=== PATIENT | male | born 1955 | race Caucasian/White ===

== ENCOUNTER → 2021-11-20 | Outpatient (CLI) | payer BC ==
[~2021-11-20] MED LIST: REGADENOSON 0.4 MG/5 ML SYRINGE IV PRN
--- NOTE | 2021-11-20 12:00 | NM ---
"EXAMINATION TYPE: NM stress lexiscan cardiolite DATE OF EXAM: 11/20/2021 COMPARISON: NONE HISTORY: Family history of heart attack with hypercholesterolemia and hypertension. History of tobacc o use. Chest pain. TECHNIQUE: After the intravenous administration of 9.4 mCi Tc 99m Sestamibi - Cardiolite resting SPE CT images acquired 45 minutes post injection. The patient received 0.4mg Lexiscan, 25.5 mCi Tc 99m Sestamibi - Stress images obtained [address] injection FINDINGS: Review of stress and rest SPECT images demonstrates diminished radiotracer uptake involving lateral l eft ventricular wall on stress and rest images with some increased color intensity on rest images inv olving the anterolateral wall versus stress images seen best on short axis images but also present on horizontal long axis views greatest in the base and mid segments. Acute ischemia at this level canno t be excluded. 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 Correlate clinically with EKG values. Cannot exclude area of acute ischemia anterolateral wall base to mid segment. Need to further investigate with direct catheter angiogram should be based on EKG and clinical correl ation A Yellow level critical message alert has been initiated for Gentry Hollingsworth DO via the [employer] | Critical Results System on 11/20/2021 11:58 AM. This message alert has been sent to Gentry Choudhury rd, DO via the preferences provided by the clinician for the receipt of Radiology Critical Findings. Message ID [id number]."
--- NOTE | 2021-11-20 19:30 | P.STRESS ---
- Stress Test Note Stress Test Results/Findings: Exam Performed: NM stress lexiscan cardiolite Exam Date: 11/20/21 Reason for Exam: CHEST PAIN Height: 5 ft 6 in Weight: 86.4 kg Protocol: LEXISCAN Stage: NA Duration of Exercise: 5 MINUTES Resting Heart Rate: 53 Resting Blood Pressure: 114/61 Maximum Achieved Heart Rate: 89 Maximum Achieved Blood Pressure: 114/61 85% PMHR: 133 100% PMHR: 156 METS: NA Technologist Comment: Stress Test Results/Findings: Patient underwent Lexiscan infusion No symptoms No arrhythmias No evidence for ischemia Nuclear portion will be reported separately
--- NOTE | 2021-11-20 19:38 | ECHOF ---
Referral Reason:R07.9 chest pain MEASUREMENTS -------- HEIGHT: 167.6 cm WEIGHT: 86.2 kg BP: IVSd: 1.4 cm (0.6 - 1.1) LVIDd: 4.3 cm (3.9 - 5.3) LVPWd: 1.1 cm (0.6 - 1.1) EDV(Teich): 82 ml IVSs: 1.8 cm LVIDs: 1.8 cm LVPWs: 1.7 cm %IVS Thck: 29 % ESV(Teich): 9 ml EF(Teich): 88 % %FS: 58 % SV(Teich): 72 ml RVIDd: 4.3 cm (< 3.3) LALs A4C: 4.7 cm LAAs A4C: 14.2 cm LAESV A-L A4C: 37 ml LAESV MOD A4C: 34 ml LALs A2C: 4.9 cm LAAs A2C: 15.1 cm LAESV A-L A2C: 40 ml LAESV MOD A2C: 38 ml LAESV(A-L): 39 ml LAESV Index (A-L): 19.84 ml/m Ao Diam: 3.3 cm (2.0 - 3.7) LA Diam: 3.7 cm (2.7 - 3.8) AV Cusp: 2.2 cm (1.5 - 2.6) EPSS: 0.1 cm MV E Magdy: 0.92 m/s MV DecT: 161 ms MV Dec Wallace: 5.7 m/s MV A Magdy: 0.52 m/s MV E/A Ratio: 1.76 MV PHT: 47 ms LVOT Vmax: 1.00 m/s LVOT maxP.00 mmHg AV Vmax: 1.13 m/s AV maxP.11 mmHg TR Vmax: 1.96 m/s TR maxP.44 mmHg RAP: 5.00 mmHg RVSP: 20.44 mmHg MV EF SLOPE: 91.30 mm/s (70 - 150) MV EXCURSION: 20.95 mm (> 18.000) FINDINGS -------- Sinus rhythm. This was a technically adequate study. The left ventricular size is normal. There is mild concentric left ventricular hypertrophy. Overa ll left ventricular systolic function is normal with, an EF between 55 - 60 %. The diastolic fillin g pattern is normal for the age of the patient 12.39. The right ventricle is moderately enlarged. Normal LA size by volume 22+/-6 ml/m2. The right atrial size is normal. Interatrial and interventricular septum intact. The aortic valve is trileaflet and appears structurally normal. There is no evidence of aortic regu rgitation. There is no evidence of aortic stenosis. Mild mitral regurgitation is present. Mild tricuspid regurgitation present. There is no evidence of pulmonary hypertension. The right v entricular systolic pressure, as measured by Doppler, is 20.44mmHg. There is no pulmonic regurgitation present. The aortic root size is normal. IVC Not well visulized. There is no pericardial effusion. CONCLUSIONS -------- 1. The left ventricular size is normal. 2. There is mild concentric left ventricular hypertrophy. 3. Overall left ventricular systolic function is normal with, an EF between 55 - 60 %. 4. The right ventricle is moderately enlarged. 5. Mild mitral regurgitation is present. 6. Mild tricuspid regurgitation present. SALES ASSISTANT [employer]TERTAINMENT AND MEDIA: Nayeli Nails RDCS
== END | disposition home or self-care (01) ==
LOC: RADNMMAIN 08:33
PROVIDERS: ATTEND Family Medicine
DX: I08.1 Rheumatic disorders of both mitral and tricuspid valves (principal); I10 Essential (primary) hypertension; Z72.0 Tobacco use
CPT/HCPCS: 93017; 93306; 78452; A9500; J2785